=== PATIENT | male | born 1960 | race Hispanic/Latino ===

== ENCOUNTER 2019-02-02 08:05 | Day surgery (SDC) | payer OTHER ==
[~2019-02-02 08:05] MED LIST: AMLO10TA7 PO; ATOR10 PO; CAPS42.55 TP; CARB15DR87 OU; CYAN100099 PO; DOCU100C33 PO; FURO40TA5 PO; LISI40TA4 PO; METF-446 PO; METO100T14 PO; NICO-649 TD; NPH,100V SQ; OMEP20TA25 PO; SERT25TA5 PO; SPIR25TA PO; TRAZ-185 PO
[2019-02-02 09:16] LABS: BASOPHILS % (AUTO) 0.5 % (0.0-5.0); EOSINOPHILS % (AUTO) 1.4 % (0.0-8.0); HEMATOCRIT 38.3 % (42-54); LYMPHOCYTES % (AUTO) 15.1 % (21.0-51.0); MEAN CORPUSCULAR HEMOGLOBIN 30.2 pg (27.0-33.0); MEAN CORPUSCULAR HGB CONC 34.8 g/dL (32.0-36.0); MEAN CORPUSCULAR VOLUME 86.7 fL (79-99); MONOCYTES % (AUTO) 8.3 % (3.0-13.0); NEUTROPHILS % (AUTO) 74.7 % (40.0-77.0); PLATELET COUNT (AUTO) 168 K/uL (130-400); RED BLOOD CELL COUNT(AUTO) 4.41 MIL/uL (4.50-6.20); RED CELL DISTRIBUTION WIDTH 13.1 % (11.0-15.5); WHITE BLOOD COUNT (AUTO) 7.5 K/uL (4.8-10.8)
[2019-02-02 09:24] LABS: CREATININE 0.8 mg/dL (0.5-1.5); POTASSIUM 3.9 mmol/L (3.5-5.1)
[2019-02-02 09:29] LABS: INR 1.1 (0.85-1.15); PARTIAL THROMBOPLASTIN TIME 29.8 SEC (26.3-35.5); PROTHROMBIN TIME 11.5 SEC (9.6-11.6)
[2019-02-02] MEDS ORDERED: MIDAZOLAM HCL 1 MG/ML 2ML VIAL ONE (10:19)
[2019-02-02] MEDS ORDERED: FENTANYL CITRATE PF 50 MCG/1 ML 2ML VIAL ONE (10:19)
[2019-02-02] MEDS ORDERED: LIDOCAINE HCL 1% 20 ML VIAL ONE (10:20)
--- NOTE | 2019-02-02 11:00 | NUR ---
U/S GD LIVER BX PROCEDURE PERFORMED BY DR Scott PERRIN. PUNCTURE SITE RUQ AND PATIENT TOLERATED PROCEDURE WELL. SPECIMEN X 5 COLLECTED AND SENT TO LAB. END OF PROCEDURE AT 1030. FLOSEAL INJECTED TO BIOPSY SITE. BIOPSY NEEDLE REMOVED AND DRESSING APPLIED. NO BLEEDING NOTED. REPORT GIVEN TO Reymundo STRICKLAND RN AND PATIENT TRANSPORTED TO DAY PATIENT 8 VIA STRETCHER. AAO X3 WITH NO C/O PAIN.
== END 2019-02-02 13:22 | disposition home or self-care (01) ==
LOC: RAH 08:05 → EDSTATUS 10:00 → RAH 13:22
PROVIDERS: ATTEND Family Medicine
DX: C22.7 Other specified carcinomas of liver (principal); E78.5 Hyperlipidemia, unspecified; I50.9 Heart failure, unspecified; Z86.010 Personal history of colon polyps; Z79.899 Other long term (current) drug therapy; F41.9 Anxiety disorder, unspecified; I10 Essential (primary) hypertension; K29.70 Gastritis, unspecified, without bleeding; K21.9 Gastro-esophageal reflux disease without esophagitis; E11.9 Type 2 diabetes mellitus without complications; E66.9 Obesity, unspecified; F43.10 Post-traumatic stress disorder, unspecified; Z98.890 Other specified postprocedural states; K74.60 Unspecified cirrhosis of liver
CPT/HCPCS: 36415; 47000; 76942; 80048; 82948; 85025; 85610; 85730; 88307; 88341; 88342; J2250; J3010